=== PATIENT | male | born 1990 | race Caucasian/White ===

== ENCOUNTER 2016-10-11 15:47 | Emergency (ER) | payer OTHER ==
[~2016-10-11 15:47] MED LIST: ALBUTEROL MININEB NEB; ALBUTEROL17 GM INH; AMOXICILLIN500 M1 PO; ATARAX PO; BROMFED DM COU118 ML PO; CRESTOR10 MG PO; DOXYCYCLINE HY100 M1 PO; FLEXERIL10 M1 PO; FLEXERIL10 MG PO; HYDROCODON-ACE1 EAC9; IBUPROFEN800 MG PO; KLONOPIN0.5 MG PO; MEDROL4 MG/DOSE- PO; MOTRIN400 M1 PO; NO MEDICATIONS; PHENERGAN PO; PRILOSEC20 MG PO; SYMBICORT80 INH; VICODIN 5/500 T1 TAB PO; VOLTAREN75 MG PO
== END 2016-10-11 16:29 | disposition home or self-care (01) ==
LOC: SED 15:47
DX: T23.171A Burn of first degree of right wrist, initial encounter (principal); T31.0 Burns involving less than 10% of body surface; E78.5 Hyperlipidemia, unspecified; F17.210 Nicotine dependence, cigarettes, uncomplicated; W22.8XXA Striking against or struck by other objects, initial encounter; Y92.69 Other specified industrial and construction area as the place of occurrence of the external cause
CPT/HCPCS: 90471; 90715; 99283

== ENCOUNTER 2016-11-08 15:29 | Emergency (ER) | payer OTHER | END 2016-11-08 16:35 | disposition home or self-care (01) | LOC: SED 15:29 | DX: S61.211A Laceration without foreign body of left index finger without damage to nail, initial encounter (principal); W26.0XXA Contact with knife, initial encounter; Y92.810 Car as the place of occurrence of the external cause; F17.210 Nicotine dependence, cigarettes, uncomplicated; R03.0 Elevated blood-pressure reading, without diagnosis of hypertension | CPT/HCPCS: 99283 ==

== ENCOUNTER 2016-11-09 13:31 | Emergency (ER) | payer OTHER | END 2016-11-09 15:00 | disposition home or self-care (01) | LOC: SED 13:31 | DX: M79.645 Pain in left finger(s) (principal); F17.210 Nicotine dependence, cigarettes, uncomplicated | CPT/HCPCS: 99283 ==